=== PATIENT | female | born 1955 | race Hispanic/Latino ===

== ENCOUNTER 2018-08-16 16:23 | Emergency (ER) | payer MEDICARE, OTHER ==
[2018-08-16] MEDS ORDERED: Ibuprofen 800 MG TAB ONE (16:48)
--- NOTE | 2018-08-16 21:09 | RAD ---
LEFT ANKLE THREE VIEWS: 08/16/2018 FINDINGS: Soft tissue swelling is seen, particularly laterally. One of the three views suggests a tiny, nondis placed fracture through the tip of the lateral malleolus. The medial malleolus appears intact. A la rge calcaneal spur is present. Some articular calcifications are evident, as well as soft tissue jesus manuel cifications. IMPRESSION: Probable hairline fracture at the tip of the lateral malleolus. CODE T POS: HOME
== END 2018-08-16 17:30 | disposition home or self-care (01) ==
LOC: BURERS 16:23
DX: S82.65XA Nondisplaced fracture of lateral malleolus of left fibula, initial encounter for closed fracture (principal); I10 Essential (primary) hypertension; E11.9 Type 2 diabetes mellitus without complications; Z87.891 Personal history of nicotine dependence; Z79.84 Long term (current) use of oral hypoglycemic drugs; Z79.899 Other long term (current) drug therapy; W22.8XXA Striking against or struck by other objects, initial encounter